=== PATIENT | male | born 1965 | race Caucasian/White ===

== ENCOUNTER 2017-06-11 06:22 | Emergency (ER) | payer BC ==
[2017-06-11] MEDS ORDERED: LIDOCAINE HCL 1% MPF SOL ONE (06:24)
[2017-06-11] MEDS ORDERED: LIDOCAINE HCL 1% MDV SOL SC ONE (06:25)
[2017-06-11] MEDS ORDERED: TDAP VACCINE 0.5 ML SUS IM ONE ×2 (06:26→08:07)
[2017-06-11 06:32] VITALS: TEMP 99.1
[2017-06-11] MEDS ORDERED: BACITRACIN 500 U/GM OIN TOP ONE ×2 (08:18→08:55)
[2017-06-11 09:06] VITALS: BP 129/88; PULSE 85; RESP 16; O2SAT 92
== END 2017-06-11 08:48 | disposition home or self-care (01) ==
LOC: ED 06:22
DX: S61.213A Laceration without foreign body of left middle finger without damage to nail, initial encounter (principal); W17.89XA Other fall from one level to another, initial encounter
CPT/HCPCS: 12002; 90471; 90715; 99285; A6402; A9270-GY; J2001